=== PATIENT | male | born 1990 | race Caucasian/White ===

== ENCOUNTER 2023-05-23 14:18 | Outpatient (CLI) | payer SELFPAY ==
--- NOTE | 2023-05-23 14:15 | RT.EKG_ITS ---
APPROVED REPORT Exam: Resting ECG Reason for Exam: chest discomfort Patient Location: O HR:84 bpm ECG Measurements Heart Rate 84 AXIS WA 137 P 56 QRSd 102 QRS 82 QT 343 T 47 QTc 406 Conclusion Sinus rhythm...normal P axis, V-rate 50- 99 RSR' in V1 or V2,
== END 2023-05-23 14:19 | disposition home or self-care (01) ==
LOC: DI.CM 14:18
PROVIDERS: Visit Provider Nurse Practitioner Family
DX: R07.89 Other chest pain (principal)
CPT/HCPCS: 93010

== ENCOUNTER 2023-05-23 16:02 | Outpatient (REF) | payer SELFPAY ==
[2023-05-23 21:03] LABS: Abs Immature Grans 0.02 10^3/uL (0.0-0.06); HCT 44.8 % (40.0-50.0); MCH 30.4 pg (27.0-33.0); MCHC 33.5 % (32.0-36.0); MCV 91 fL (80-95); MPV 10.4 fL (8.0-11.0); Platelet Count 222 10^3/uL (130-400); RBC 4.94 10^6/uL (4.36-5.78); RDW 12.6 % (11.8-14.1); WBC 6.39 10^3/uL (4.4-10.8)
[2023-05-23 21:21] LABS: Absolute Eosinophil Count 0.06 10^3/uL (0.0-0.7); Absolute Lymphocyte Count 1.66 10^3/uL (1.2-3.4); Absolute Monocyte Count 0.26 10^3/uL (0.1-0.8); Absolute Neutrophil Count 4.41 10^3/uL (1.2-6.7); Atypical Lymphocytes % 5; Bands % 1
[2023-05-23 21:22] LABS: Diff Comment Diff Reviewed; RBC Morphology Normal
[2023-05-23 21:23] LABS: ALT 33 U/L (16-63); AST 28 U/L (15-37); Albumin 4.2 g/dL (3.4-5.0); Alkaline Phosphatase 97 U/L (46-116); Anion Gap 9.9 mmol/L (3-11); BUN 20 mg/dL (7-18); Bilirubin, Total 0.3 mg/dL (0.2-1.0); CO2 28.1 mmol/L (21.0-32.0); CREATININE 1.1 mg/dL (0.70-1.30); Calcium 9.1 mg/dL (8.5-10.1); Chloride 103 mmol/L (98-107); Estimated GFR 92.04 (mL/min/1.73m2); Glucose 127 mg/dL (74-106); Magnesium 2.1 mg/dL (1.8-2.4); Potassium 3.6 mmol/L (3.5-5.1); Sodium 141 mmol/L (136-145); TSH (W/Ref FT4) 1.07 uIU/mL (0.36-3.74); Total Protein 7.5 g/dL (6.4-8.2)
[2023-05-25 11:26] LABS: Lyme Ab w Rflx to Lyme Confirm Negative (Negative)
[2023-05-27 14:37] LABS: Anaplasma phagocytophilum Negative (Negative); B. miyamotoi PCR Negative (Negative); Babesia divergens/MO-1 Negative (Negative); Babesia duncani Negative (Negative); Babesia microti Negative (Negative); Ehrlichia chaffeensis Negative (Negative); Ehrlichia ewingii/canis Negative (Negative); Ehrlichia muris eauclairensis Negative (Negative)
== END 2023-05-23 16:03 | disposition home or self-care (01) ==
LOC: LBN 16:02
PROVIDERS: Visit Provider Nurse Practitioner Family
DX: R53.83 Other fatigue (principal); J06.9 Acute upper respiratory infection, unspecified; R07.9 Chest pain, unspecified; R06.02 Shortness of breath; F41.8 Other specified anxiety disorders; R21 Rash and other nonspecific skin eruption
CPT/HCPCS: 80053; 87798; 83735; 84443; 85025; 86618

== ENCOUNTER 2023-06-02 10:52 | Emergency (ER) | payer SELFPAY ==
--- NOTE | 2023-06-02 10:45 | RT.EKG_ITS ---
APPROVED REPORT Exam: Resting ECG Reason for Exam: Chest pain Patient Location: E HR:98 bpm ECG Measurements Heart Rate 98 AXIS AK 147 P 77 QRSd 104 QRS 90 QT 347 T 21 QTc 459 Conclusion Sinus [address] changes new from prior
[2023-06-02 10:55] VITALS: BP 169/95; PULSE 104; RESP 16; TEMP 36.8; O2SAT 97
[2023-06-02 10:59] VITALS: RESP 16
[2023-06-02] MEDS: Aspirin 81 MG CHEW 324 MG CH (11:13)
--- NOTE | 2023-06-02 11:15 | RT.EKG_ITS ---
APPROVED REPORT Exam: Resting ECG Reason for Exam: chest pain Patient Location: E HR:87 bpm ECG Measurements Heart Rate 87 AXIS ME 139 P 53 QRSd 107 QRS 80 QT 349 T 27 QTc 420 Conclusion Sinus rhythm 87 normal axis no stemi
--- NOTE | 2023-06-02 11:18 | ED.GENADUL_ITS ---
Discharge Plan Disposition Patient Disposition: Home Condition: Stable Discharge Details Clinical Impression: Chest pain Primary Care Provider: Unknown,Unknown ED Provider: Matt Plascencia Home Meds and New Rx's Prescriptions: No Action clotrimazole 1 % cream 1 applic topical BID Qty: 45 0RF Discharge Instructions Instructions: Chest Pain (ED) [facility] General Date/Time Provider Initiated Documentation: 06/02/23 11:01 . Limitations to Documentation: no limitations . Information obtained by: patient . HPI Narrative: 32-year-old gentleman with past medical history of asthma presents for evaluation of chest pain. Patient reports that the pain started yesterday. He says that he was doing some heavy lifting when he noticed it. He states that it went away but then came back this morning. He has been having some mild shortness of breath but he says he has been attributing to his asthma. No sweating, no nausea. Denies any family history of early cardiac . Related Data Home Medications Medication Instructions Recorded Confirmed clotrimazole 1 % topical cream 1 applic topical BID #45 grams 05/23/23 06/02/23 Previous Rx's Medication Instructions Recorded clotrimazole 1 % topical cream 1 applic topical BID #45 grams 05/23/23 Allergies Allergy/AdvReac Type Severity Reaction Status Date / Time erythromycin base Allergy Swelling/Ed Verified 06/02/23 10:59 lefty Sulfa (Sulfonamide Allergy Hives Verified 06/02/23 10:59 Antibiotics) General Stated Complaint: Chest Pain WINSTON: 3 Exam Narrative Exam Narrative: Review of Systems: All systems reviewed & are unremarkable except as noted in HPI and below Well-developed, no acute distress NCAT PERRL, normal conjunctiva Tachycardic Unlabored respiratory effort, clear breath sounds bilaterally Nondistended abdomen Extremities w/o deformity, no cyanosis, no edema No rashes or lesions. no focal neurologic deficits Appropriate mood and affect Course Vital Signs Vital signs: Vital Signs Temperature 36.8 C 06/02/23 10:55 Pulse 104 H 06/02/23 10:55 Respiratory Rate 16 06/02/23 10:55 Blood Pressure 169/95 H 06/02/23 10:55 Pulse Oximetry 97 06/02/23 10:55 Temperature 36.8 C 06/02/23 10:55 Pulse 104 H 06/02/23 10:55 Respiratory Rate 16 06/02/23 10:59 Respiratory Effort Normal 06/02/23 10:59 Respiratory Depth Normal 06/02/23 10:59 Respiratory Pattern Normal 06/02/23 10:59 Blood Pressure 169/95 H 06/02/23 10:55 Blood Pressure Position Sitting 06/02/23 10:55 Pulse Oximetry 97 06/02/23 10:55 Oxygen Delivery Method Room Air 06/02/23 10:55 Oxygen Flow Rate 0 06/02/23 10:55 Pain Level 4 06/02/23 10:55 Comment Pain is behind ribs on anterior right side of chest wall. Pain radiates to the back. 06/02/23 10:55 Medical Decision Making Emergent evaluation of chest pain. Patient presents with tachycardia. EKG reviewed today and in comparison to the EKG from urgent care few weeks ago, there does seem to be some ST segment changes, these are likely early repol and rate related. Aspirin given. Lab work reviewed. No elevation in troponin. Repeat EKG as normalization of ST segment as rate decreased. The D-dimer was ever so slightly elevated so a CTA was ordered to evaluate for PE. This was unremarkable. Patient symptoms have resolved. Likely musculoskeletal or some chest discomfort from asthma exacerbations. Advised to use Motrin or a bronchodilator if chest pain returns. If it does not resolve after that, to return to the emergency department for further evaluation. Otherwise patient is low risk send follow-up with PCP Medical Records Medical records reviewed: Yes I reviewed the patient's medical records. Lab Data Lab results reviewed: Yes I reviewed the patient's lab results. Quality:SDOH Health Related Social Needs: No Data to Display PFSH All Active Problems Chest pain (Acute) Social History Smoking/Tobacco Use Status: Never Smoking risk assessment performed?: Yes Alcohol Intake: never Substance use type: does not use Do you feel safe at home: Yes Do you feel safe in your relationship?: Yes
[2023-06-02 11:34] LABS: Abs Immature Grans 0.02 10^3/uL (0.0-0.06); Absolute Basophil Count 0.02 10^3/uL (0.0-0.2); Absolute Eosinophil Count 0.06 10^3/uL (0.0-0.7); Absolute Lymphocyte Count 1.28 10^3/uL (1.2-3.4); Absolute Monocyte Count 0.46 10^3/uL (0.1-0.8); Absolute Neutrophil Count 4.77 10^3/uL (1.2-6.7); Basophils % 0.3; Eosinophils % 0.9; HCT 48.5 % (40.0-50.0); HGB 15.8 g/dL (13.5-17.5); Immature Grans % 0.3; Lymphocytes % 19.4; MCH 30.2 pg (27.0-33.0); MCHC 32.6 % (32.0-36.0); MCV 93 fL (80-95); MPV 9.6 fL (8.0-11.0); Neutrophils % 72.1; Platelet Count 201 10^3/uL (130-400); RBC 5.23 10^6/uL (4.36-5.78); RDW 12.8 % (11.8-14.1); RDW-SD 43.6 fL; WBC 6.61 10^3/uL (4.4-10.8)
[2023-06-02 11:48] LABS: ALT 27 U/L (16-63); AST 22 U/L (15-37); Albumin 4.3 g/dL (3.4-5.0); Alkaline Phosphatase 102 U/L (46-116); Anion Gap 7.4 mmol/L (3-11); BUN 20 mg/dL (7-18); Bilirubin, Total 0.6 mg/dL (0.2-1.0); CO2 29.6 mmol/L (21.0-32.0); CREATININE 1.1 mg/dL (0.70-1.30); Calcium 9.2 mg/dL (8.5-10.1); Chloride 104 mmol/L (98-107); Estimated GFR 92.04 (mL/min/1.73m2); Glucose 124 mg/dL (74-106); Potassium 3.9 mmol/L (3.5-5.1); Sodium 141 mmol/L (136-145); Total Protein 7.8 g/dL (6.4-8.2); Troponin I < 50 ng/L (< or =60)
--- NOTE | 2023-06-02 11:55 | DI.RAD_ITS ---
Exam(s) XR CHEST 2V PA LATERAL EXAM: XR CHEST 2V PA LATERAL CLINICAL HISTORY: chest pain. TECHNIQUE: 2D digital imaging was performed. COMPARISON: No exams were available for comparison FINDINGS: 2 views: Heart size is normal. The mediastinum is not widened. There are no infiltrates nor pleural effusions. Pleural thickening in lung apices is noted, right sl ightly larger than left. No overlying rib destruction. There is no pneumothorax. IMPRESSION: Bilateral apical pleural thickening, right more so than left. No other pulmonary findings. DATA REPOSITORY: RADIATION DOSE DELIVERED:
[2023-06-02 12:00] LABS: D-Dimer 501 ng/mlFEU (<500)
--- NOTE | 2023-06-02 12:00 | DI.CT_ITS ---
Exam(s) CT CHEST PE CTA EXAM: CT CHEST PE CTA CLINICAL HISTORY: CP SOB. TECHNIQUE: Imaging Protocol: Axial CT angiography was performed with multi-slice acquisition and mu lti-planar reconstructions as well as axial, coronal and sagittal MIP reconstructions. CONTRAST MATERIAL: Intravenous: Omnipaque 350 Contrast volume:100 ml COMPARISON: CR XR CHEST 2V PA LATERAL from 06/02/2023 FINDINGS: Pulmonary Arteries: No evidence of filling defect to suggest pulmonary emboli. Tracheobronchial tree: No mucous plugging. Mediastinum and Lissy: No dominant adenopathy or fluid collection. Pulmonary parenchyma: No consolidation or dominant measurable mass. Apical pleural thickening, right greater than left. Pleura: No effusion or pneumothorax. Heart: The heart is not dilated. No coronary artery calcifications are seen. Aorta: Thoracic aorta non-dilated. No dissection. Upper abdomen: No acute findings. Bones: Unremarkable for age. Tubes, Catheters, and Lines: None Soft tissues: Unremarkable. IMPRESSION: No evidence of pulmonary embolism or other acute abnormality.. RADIATION DOSE DELIVERED: Total DLP DATA REPOSITORY: All CT scans at this facility are submitted to the National Radiology Data Registry (NRDR) Dose Index Registry (DIR) with the [employer] ([employer]). RADIATION OPTIMIZATION: All CT scans at this facility use at least one of these dose optimization te chniques: automated exposure control; mA and/or kV adjustment per patient size (includes targeted exa ms where dose is matched to clinical indication); or iterative reconstruction.
[2023-06-02] MEDS: Omnipaque 350 MG/ML 500 ML BTL-Imaging package 100 ML IJ (12:20)
[2023-06-02] MEDS: Normal Saline - Diluent 50 ML VIAL IJ (12:21)
[2023-06-02 14:34] LABS: Troponin I < 50 ng/L (< or =60)
[2023-06-02 15:56] VITALS: BP 140/78; PULSE 74; RESP 16; TEMP 36.8; O2SAT 97
== END 2023-06-02 16:24 | disposition home or self-care (01) ==
PROVIDERS: Emergency Provider Emergency Medicine
DX: R07.9 Chest pain, unspecified (principal); R00.0 Tachycardia, unspecified; J45.909 Unspecified asthma, uncomplicated
CPT/HCPCS: 36415; 71275; 80053; 93005; 99285; 71046; 84484; 85025; 85379; 93010; 99284